=== PATIENT | male | born 2000 | race Two or more races ===

== ENCOUNTER 2024-10-10 09:50 | Inpatient (IN) | payer OTHER ==
[~2024-10-10] VITALS: Ht 182.9 cm; Wt 107.7 kg
[2024-10-10] MEDS: IOHEXOL 300 MG/ML 100ML BOTTLE IJ ONE (10:08)
[2024-10-10 10:11] VITALS: PULSE 84; RESP 15; O2SAT 96
--- NOTE | 2024-10-10 10:12 | ED.PDOC ---
GI ASSESSMENT HPI Comments This is a 23 year old male JUANI presenting to the ED with chief complaint of abdominal pain. Patient reports that he started to experience some RLQ abdominal discomfort 3 days ago, but at 3am this morning, it worsened to pain, so he visited his local [facility]. EMS relays that the patient was confirmed to have appendicitis on their CT, being transferred to [facility] for further in- patient management. Patient states that his pain is intermittent in intensity, but is always constant. Patient denies any N/V/D, fever, chills, dizziness, or headache. Chief Complaint: Abdominal Pain Time Seen by MD: 10:10 Reviewed Notes: Nurses Notes, Grapple Skidder Operator Notes, Medications, Allergies Allergies: Coded Allergies: NO KNOWN ALLERGIES (Unverified , 10/10/24) Information Source: Patient, Emergency Med Personnel Mode of Arrival: EMS Timing: Days Duration: Since onset Prehospital treatment: None Quality: Aching, None Vomitus: None Stool: Normal Severity: Moderate Recent: None Recent Hx of: None Pain Location: RLQ Associated sign and symptoms: Abdominal Pain Past Medical History PAST MEDICAL HISTORY: Denies Surgical History: Denies all surgeries Family History Family History: Reviewed,noncontributory to illness Social History Smoker: Non-Smoker Alcohol: Denies ETOH Use Drugs: Denies Drug Use Lives In: Home Constitutional: denies: chills, diaphoresis, fatigue, fever, malaise, sweats, weakness, others EENTM: denies: blurred vision, double vision, ear bleeding, ear discharge, ear drainage, ear pain, ear ringing, eye pain, eye redness, hearing loss, mouth pain, mouth swelling, nasal discharge, nose bleeding, nose congestion, nose pain, photophobia, tearing, throat pain, throat swelling, voice changes, others Respiratory: denies: cough, hemoptysis, orthopnea, SOB at rest, shortness of breath, SOB with excertion, stridor, wheezing, others Cardiovascular: denies: chest pain, dizzy spells, diaphoresis, Dyspnea on exertion, edema, irregular heart beat, left arm pain, lightheadedness, palpitations, PND, syncope, others Gastrointestinal: reports: abdominal pain; denies: abdomen distended, blood streaked bowels, constipated, diarrhea, dysphagia, difficulty swallowing, hemate mesis, melena, nausea, poor appetite, poor fluid intake, rectal bleeding, rectal pain, vomiting, others Genitourinary: denies: burning, dysuria, flank pain, frequency, hematuria, incontinence, penile discharge, penile sore, pain, testicle pain, testicle swelling, urgency, others Neurological: denies: dizziness, fainting, headache, left sided numbness, left sided weakness, numbness, paresthesia, pre-existing deficit, right sided numbness, right sided weakness, seizure, speech problems, tingling, tremors, weakness, others Musculoskeletal: denies: back pain, gout, joint pain, joint swelling, muscle pain, muscle stiffness, neck pain, others Integumetry: denies: bruises, change in color, change in hair/nails, dryness, laceration, lesions, lumps, rash, wounds, others Allergic/Immunocompromised: denies: Difficulty Healing, Frequent Infections, Hives, Itching, others Hematologic/Lymphatic: denies: anemia, blood clots, easy bleeding, easy bruising, swollen glands, others Endocrine: denies: excessive hunger, excessive sweating, excessive thirst, excessive urination, flushing, intolerance to cold, intolerance to heat, u nexplained weight gain, unexplained weight loss, others Psychiatric: denies: anxiety, bipolar disorder, depression, hopeless, panic disorder, schizophrenia, sleepless, suicidal, others All Other Systems: Reviewed and Negative Physical Exam General Appearance: Moderate Distress, Normal HEENT: Normal ENT Inspection, Pharynx Normal, TMs Normal Neck: Full Range of Motion, Non-Tender, Normal, Normal Inspection Respiratory: Chest Non-Tender, Lungs Clear, No Accessory Muscle Use, No Respiratory Distress, Normal Breath Sounds Cardiovascular: No Edema, No JVD, No Murmur, No Gallop, Normal Peripheral Puls es, Regular Rate/Rhythm Breast Exam: Deferred Gastrointestinal: No Organomegaly, No Pulsatile Mass, Normal Bowel Sounds, RLQ, Soft Genitalia: Deferred Pelvic: Deferred Rectal: Deferred Extremities: No calf tenderness, Normal capillary refill, Normal inspection, Normal range of motion, Non-tender, No pedal edema Musculoskeletal : Apperance: Normal Neurologic: Alert, nurse transplant II-XII nml as Tested, No Motor Deficits, Normal Affect, Normal Mood, No Sensory Deficits Cerebellar Function: Normal Reflexes: Normal Skin: Dry, Normal Color, Warm Peripheral Pulses: 3+ Radial (R), 3+ Radial (L) Lymphatic: No Adenopathy Was a procedure done? Was a procedure done?: No GI differential Dx Differential Diagnosis: Appendicitis, Constipation, Diverticular disease, Esophagitis, Gastritis/PUD, Gastroenteritis X-Ray, Labs, Meds, VS Vital Signs Date Time Temp Pulse Resp B/P (MAP) Pulse Ox O2 Delivery O2 Flow Rate FiO2 10/10/24 10:11 84 15 96 Room Air* 0 21 10/10/24 10:07 98.3 74 15 125/72 (89) 97 98.3 Current Medications Medications (Trade) Dose Ordered Sig/Zehra Route Start Time Stop Time Status Last Admin Sodium Chloride 1,000 ml @ 1,000 mls/hr Q1H ONCE IV 10/10/24 10:00 10/10/24 10:59 10/10/24 10:15 Patient alert. Complaining of abdominal pain. Vitals stable. Answering questions. Abdomen is soft tender in the right lower quadrant. CT scan that was done at outside facility does show appendicitis. Spoke with surgeon. He will be going for surgery for appendectomy. Establish intravenous access. Was given fluids. Was given Ancef. Was given Flagyl. Reviewed his chart. Explained to the patient. Continue monitoring. Time of 1ST Reevaluation: 11:07 Reevaluation 1ST: Unchanged Patient Education/Counseling: Diagnosis, Treatment Family Education/Counseling: No Family Present Additional Information Previous visits reviewed: None The following tests were ordered, and results were reviewed by me: CBC, CMP, UA, Lactic, PTPTT, Blood Culture, CT Abd/Pel W/ IV Con Additional Information was gathered from interviewing the following independent historians: EMS I reviewed and agreed with the following test results read by other providers: CT Abd/Pel with IV Con I discussed treatment and results with medical personnel and: patient Comprehensive systems review obtained and negative except for what is stated in the HPI. SEPSIS Sepsis Screen Physician Orders Complete Blood Count (10/10/24 10:00) Comprehensive Metabolic Panel (10/10/24 10:00) PTPTT (10/10/24 10:00) Urinalysis (10/10/24 10:00) Sodium Chloride 0.9% (10/10/24 10:00) Sodium Chloride 0.9% (10/10/24 10:00) Blood Culture (10/10/24 10:04) Lactic Acid W/ Reflex Order (10/10/24 10:04) Type And Screen (10/10/24 10:13) Obtain Consent For: (10/10/24 10:13) Cefazolin Ancef (10/10/24 10:30) Metronidazole Ivpb Flagyl (10/10/24 10:30) Morphine Sulfate Injection (10/10/24 10:30) Ondansetron Hcl (Zofran) (10/10/24 10:30) Vital Signs Date Time Temp Pulse Resp B/P (MAP) Pulse Ox O2 Delivery O2 Flow Rate FiO2 10/10/24 10:11 84 15 96 Room Air* 0 21 10/10/24 10:07 98.3 74 15 125/72 (89) 97 98.3 Medications Medications Dose Ordered Sig/Zehra Route Start Time Stop Time Status Last Admin Dose Admin Sodium Chloride 1,000 ml @ 1,000 mls/hr Q1H ONCE IV 10/10/24 10:00 10/10/24 10:59 10/10/24 10:15 Departure 1 Departure Time of Disposition: 10:21 Impression: Primary Impression: Acute appendicitis Qualified Codes: K35.80 - Unspecified acute appendicitis Disposition: 09 ADMITTED INPATIENT Admit to: Med Surg Condition: Guarded Critical Care Note Critical Care Time?: Yes (90 min-critical care time only) Stability Stability form required: No Heart Score Heart Score: Heart Score Response (Comments) Value History N/A 0 EKG N/A 0 Age N/A 0 Risk Factors N/A 0 Troponin N/A 0 Total 0 I personally scribed for RACHEL KWONG MD ([email or web address]) on 10/10/24 at 10:12. Electronically submitted by Gato Corona ([email or web address]). RACHEL KWONG MD Oct 10, 2024 10:12
[2024-10-10] MEDS: SODIUM CHLORIDE 0.9% 1,000 ML IV ONE (10:15)
--- NOTE | 2024-10-10 10:30 | DVHINCON2 ---
Date of service: Oct 10, 2024 Allergies: Coded Allergies: NO KNOWN ALLERGIES (Unverified , 10/10/24) Vital Signs Vital Signs Date Time Temp Pulse Resp B/P (MAP) Pulse Ox O2 Delivery O2 Flow Rate FiO2 10/10/24 10:11 84 15 96 Room Air* 0 21 10/10/24 10:07 98.3 125/72 (89) 98.3 Assessment 3 DAY HISTORY OF ABDOMINAL PAIN MOSTLY IN THE RIGHT LOWER QUADRANT, POINT TENDER NESS IN RIGHT LOWER QUADRANT WITH REBOUND GUARDING AND POSITIVE ROVSING SIGN CT SCAN FROM [facility] CONFIRMS CLINICAL IMPRESSSIOJN OF APPENDICITIS, LAPAROSCOPI POSSIBLY OPEN APPENDECTOMY RISKS AND COMPLICATIONS EXPLAINED Plan discussed with: Patient KIRK THOMPSON MD Oct 10, 2024 10:30
[2024-10-10 10:43] LABS: Hematocrit 44.5 % (41.0-53.0); Hemoglobin 15.2 g/dL (13.5-17.5); Mean Corpuscular Hemoglobin 31.4 pg (28.0-32.0); Mean Corpuscular Volume 92.2 fL (80.0-100.0); Nucleated Red Blood Cells % 0.1 %
[2024-10-10 10:56] LABS: Alanine Aminotransferase 32 U/L (7-40); Alkaline Phosphatase 88 U/L (46-116); Anion Gap 7 (5-15); BUN/Creatinine Ratio 16.3 (10.0-20.0); Blood Urea Nitrogen 15 mg/dL (9-23); Calcium 9.8 mg/dL (8.7-10.4); Carbon Dioxide 31 mmol/L (20-31); Chloride 104 mmol/L (98-107); Glucose 85 mg/dL (74-106); Potassium 4.0 mmol/L (3.5-5.1); Sodium 142 mmol/L (136-145); Total Protein 7.0 g/dL (5.7-8.2)
[2024-10-10 10:57] LABS: Bilirubin, Total 0.5 mg/dL (0.2-1.0); INR 1.03 (0.9-1.15); Partial Thromboplastin Time 30.5 SEC (24.5-34.5); Prothrombin Time 10.9 sec (9.3-11.8)
[2024-10-10 10:58] LABS: Albumin 4.8 g/dL (3.2-4.8)
[2024-10-10] MEDS ORDERED: KETAMINE 50mg/ML 1ml syringe ONE (11:04)
[2024-10-10] MEDS ORDERED: fentaNYL CITRATE 100 MCG/2 ML VL ONE (11:05)
[2024-10-10] MEDS ORDERED: GLYCOPYRROLATE 0.2 MG/ML 1ML VIAL ONE (11:05)
[2024-10-10] MEDS ORDERED: PROPOFOL 10 MG/ML 20 ML IV ONE (11:05)
[2024-10-10] MEDS ORDERED: ONDANSETRON HCL 4 MG/2 ML VIAL ONE (11:05)
[2024-10-10] MEDS ORDERED: MIDAZOLAM HCL 2MG/2ML 2ml VIAL (1mg/ml) ONE (11:05)
[2024-10-10] MEDS ORDERED: KETOROLAC TROMETH 30 MG/ML 1ML VIAL ONE (11:05)
[2024-10-10] MEDS ORDERED: LIDOCAINE 2% (LOCAL ANESTH.) PF 5ml SDV ONE (11:05)
[2024-10-10] MEDS ORDERED: ROCURONIUM 10MG/ML 10ML VIAL IV ONE (11:05)
[2024-10-10] MEDS ORDERED: HYDROmorphone HCL 2 MG/ML VL/or syr ONE (12:07)
--- NOTE | 2024-10-10 12:14 | DVHINCON2 ---
Date of service: Oct 10, 2024 Reason for Consultation appendicitis History of Present Illness HPI 23 year old male presenting to the ED with chief complaint of abdominal pain. Patient reports that he started to experience some RLQ abdominal discomfort 3 days ago, but at 3am this morning, pain H&P Exam Vital Signs Vital Signs Date Time Temp Pulse Resp B/P (MAP) Pulse Ox O2 Delivery O2 Flow Rate FiO2 10/10/24 10:11 84 15 96 Room Air* 0 21 10/10/24 10:07 98.3 125/72 (89) 98.3 Labs/Xrays Labs Test 10/10/24 10:24 Range/Units White Blood Count 5.8 4.4-10.8 10^3/uL Red Blood Count 4.83 4.5-5.90 10^6/uL Hemoglobin 15.2 13.5-17.5 g/dL Hematocrit 44.5 41.0-53.0 % Mean Corpuscular Volume 92.2 80.0-100.0 fL Mean Corpuscular Hemoglobin 31.4 28.0-32.0 pg Mean Corpuscular Hemoglobin Concent 34.0 32.0-36.0 g/dL Red Cell Distribution Width 12.3 11.8-14.3 % Platelet Count 227 140-450 10^3/uL Mean Platelet Volume 9.3 6.9-10.8 fL Neutrophils (%) (Auto) 66.8 37.0-80.0 % Lymphocytes (%) (Auto) 24.1 10.0-50.0 % Monocytes (%) (Auto) 7.1 0.0-12.0 % Eosinophils (%) (Auto) 1.6 0.0-7.0 % Basophils (%) (Auto) 0.4 0.0-2.0 % Neutrophils # (Auto) 3.9 1.6-8.6 10 ^3/uL Lymphocytes # (Auto) 1.4 0.4-5.4 10 ^3/uL Monocytes # (Auto) 0.4 0-1.3 10 ^3/uL Eosinophils # (Auto) 0.1 0-0.8 10 ^3/uL Basophils # (Auto) 0 0-0.2 10 ^3/uL Nucleated Red Blood Cells 0.1 % Prothrombin Time 10.9 9.3-11.8 sec Prothrombin Time INR 1.03 0.9-1.15 Activated Partial Thromboplast Time 30.5 24.5-34.5 SEC Sodium Level 142 136-145 mmol/L Potassium Level 4.0 3.5-5.1 mmol/L Chloride Level 104 98-107 mmol/L Carbon Dioxide Level 31 20-31 mmol/L Anion Gap 7 5-15 Blood Urea Nitrogen 15 9-23 mg/dL Creatinine 0.92 0.700-1.30 mg/dL Glomerular Filtration Rate Calc 118 >90 mL/min BUN/Creatinine Ratio 16.3 10.0-20.0 Serum Glucose 85 74-106 mg/dL Lactic Acid Level 1.0 0.4-2.0 mmol/L Calcium Level 9.8 8.7-10.4 mg/dL Total Bilirubin 0.5 0.2-1.0 mg/dL Aspartate Amino Transferase (AST) 25 13-40 U/L Alanine Aminotransferase (ALT) 32 7-40 U/L Alkaline Phosphatase 88 46-116 U/L Total Protein 7.0 5.7-8.2 g/dL Albumin 4.8 3.2-4.8 g/dL TAMIKA NUGENT SPEAKER MOUNTER Oct 10, 2024 12:14
[2024-10-10] MEDS: ceFAZolin 2 GM/D5W50ml 50 ML IV ONE (12:30)
[2024-10-10] MEDS: BUPIVACAINE HCL 0.25% P/F 10 ML VIAL ONE (12:47)
[2024-10-10] MEDS: LIDOCAINE W/ EPINEPHRINE 1% 20ML VIAL ONE (12:48)
[2024-10-10] MEDS ORDERED: MORPHINE SULFATE INJ 2 MG/ml SYRG IV PRN (13:00)
[2024-10-10] MEDS ORDERED: ONDANSETRON HCL 4 MG/2 ML VIAL IV PRN (13:00)
[2024-10-10] MEDS ORDERED: ACETAMINOPHEN 325 MG TAB PO PRN (13:00)
[2024-10-10] MEDS: PANTOPRAZOLE 40 MG/10 ML VIAL INJ IV SCH (13:15)
--- NOTE | 2024-10-10 13:20 | DVHHP2 ---
History of Present Illness Reason for Visit: Abdominal pain History of Present Illness Elmer Christianson is a 23-year-old male with no past medical history who presents to the ED with abdominal pain that started 3 days ago. Was reported that his pain will had worsen 3:00 a.m. this morning had a CT on his local [facility] and then was transferred here for further management. Patient was seen ambulating. General surgery with him. Appears comfortable and ambulating well. Past Surgical History: None Lives: Other Domestic Violence: Neg Review of Systems Gastrointestinal: Abdominal Pain Allergies: Coded Allergies: NO KNOWN ALLERGIES (Unverified , 10/10/24) Exam Vital Signs Vital Signs Date Time Temp Pulse Resp B/P (MAP) Pulse Ox O2 Delivery O2 Flow Rate FiO2 10/10/24 10:11 84 15 96 Room Air* 0 21 10/10/24 10:07 98.3 125/72 (89) 98.3 General Appearance: Alert, Oriented X3, Cooperative, No acute distress HEENT: Atraumatic, PERRLA, EOMI, Mucous membr. moist/pink Respiratory: Clear to auscultation, Normal air movement Cardiovascular: Regular rate, Normal S1, Normal S2, No murmurs Abdominal: Soft Extremities: Normal pulses Skin: No significant lesion Neuro: Normal gait, Normal speech, Strength at 5/5 X4 ext, Normal tone, Sen sation intact Psych/Mental Status: Mental status NL, Mood NL Labs/Xrays Labs Test 10/10/24 10:24 Range/Units White Blood Count 5.8 4.4-10.8 10^3/uL Red Blood Count 4.83 4.5-5.90 10^6/uL Hemoglobin 15.2 13.5-17.5 g/dL Hematocrit 44.5 41.0-53.0 % Mean Corpuscular Volume 92.2 80.0-100.0 fL Mean Corpuscular Hemoglobin 31.4 28.0-32.0 pg Mean Corpuscular Hemoglobin Concent 34.0 32.0-36.0 g/dL Red Cell Distribution Width 12.3 11.8-14.3 % Platelet Count 227 140-450 10^3/uL Mean Platelet Volume 9.3 6.9-10.8 fL Neutrophils (%) (Auto) 66.8 37.0-80.0 % Lymphocytes (%) (Auto) 24.1 10.0-50.0 % Monocytes (%) (Auto) 7.1 0.0-12.0 % Eosinophils (%) (Auto) 1.6 0.0-7.0 % Basophils (%) (Auto) 0.4 0.0-2.0 % Neutrophils # (Auto) 3.9 1.6-8.6 10 ^3/uL Lymphocytes # (Auto) 1.4 0.4-5.4 10 ^3/uL Monocytes # (Auto) 0.4 0-1.3 10 ^3/uL Eosinophils # (Auto) 0.1 0-0.8 10 ^3/uL Basophils # (Auto) 0 0-0.2 10 ^3/uL Nucleated Red Blood Cells 0.1 % Prothrombin Time 10.9 9.3-11.8 sec Prothrombin Time INR 1.03 0.9-1.15 Activated Partial Thromboplast Time 30.5 24.5-34.5 SEC Sodium Level 142 136-145 mmol/L Potassium Level 4.0 3.5-5.1 mmol/L Chloride Level 104 98-107 mmol/L Carbon Dioxide Level 31 20-31 mmol/L Anion Gap 7 5-15 Blood Urea Nitrogen 15 9-23 mg/dL Creatinine 0.92 0.700-1.30 mg/dL Glomerular Filtration Rate Calc 118 >90 mL/min BUN/Creatinine Ratio 16.3 10.0-20.0 Serum Glucose 85 74-106 mg/dL Lactic Acid Level 1.0 0.4-2.0 mmol/L Calcium Level 9.8 8.7-10.4 mg/dL Total Bilirubin 0.5 0.2-1.0 mg/dL Aspartate Amino Transferase (AST) 25 13-40 U/L Alanine Aminotransferase (ALT) 32 7-40 U/L Alkaline Phosphatase 88 46-116 U/L Total Protein 7.0 5.7-8.2 g/dL Albumin 4.8 3.2-4.8 g/dL SEPSIS Sepsis Screen Date sepsis recognized/suspect: Oct 10, 2024 Time Sepsis recognized/suspect: 946 Recent Procedure: No On Antibiotic Therapy: No Respiratory Rate >20: No Heart Rate >90: No Temp<36 C (96.8 F) or >38.3 C: No SBP <90 or MAP <65 mmHG: No New Acute Mental Status Change: No Is the patient on CPAP, BIPAP,: No Physician Orders Urinalysis (10/10/24 10:00) Sodium Chloride 0.9% (10/10/24 10:00) Blood Culture (10/10/24 10:04) Obtain Consent For: (10/10/24 10:13) Anaerobic Culture (10/10/24 12:43) Gram Stain (10/10/24 12:43) Routine Bacterial Culture (10/10/24 12:43) Vital Signs Date Time Temp Pulse Resp B/P (MAP) Pulse Ox O2 Delivery O2 Flow Rate FiO2 10/10/24 10:11 84 15 96 Room Air* 0 21 10/10/24 10:07 98.3 74 15 125/72 (89) 97 98.3 Laboratory Tests Test 10/10/24 10:24 Lactic Acid Level 1.0 mmol/L (0.4-2.0) White Blood Count 5.8 10^3/uL (4.4-10.8) Medications Medications Dose Ordered Sig/Zehra Route Start Time Stop Time Status Last Admin Dose Admin Bupivacaine HCl 10 ml STK-MED ONCE .ROUTE 10/10/24 12:06 10/10/24 12:04 DC 10/10/24 12:47 10 ML Cefazolin Sodium/ Dextrose 50 ml @ ud STK-MED ONCE IV 10/10/24 10:37 10/10/24 10:35 DC 10/10/24 12:30 Lidocaine/ Epinephrine 20 ml STK-MED ONCE .ROUTE 10/10/24 12:06 10/10/24 12:04 DC 10/10/24 12:48 20 ML Sodium Chloride 1,000 ml @ 1,000 mls/hr Q1H ONCE IV 10/10/24 10:00 10/10/24 10:59 DC 10/10/24 10:15 1,000 MLS/HR Assessment/Plan Assessment/Plan Assessment Intractable abdominal pain likely due to appendicitis Plan Admit to med surge Antiemetics Pain management UA IV antibiotics-cefazolin + Flagyl NS 2 L given ED Lactic noted Blood cultures CT abdomen and pelvis noted PT/PTT Diet per General surgery No home medications noted DVT prophylaxis-SCDs PUD prophylaxis-PPIs Discussed plan of care with patient and nurse [place] [id number] Preventive counseling healthy eating habits, physical activity, and regular checkups Plan discussed with: Patient Date of Service: Oct 10, 2024 Billing Provider: NIDIA MAE Common Visit Codes: [id number] INP/OBS CARE (HIGH) Secondary Visit Codes: [id number] COUNSELING IND NIDIA MAE Oct 10, 2024 13:20
[2024-10-10] MEDS: FAMOTIDINE (10MG/ML) 2ML VL IV ONE (13:25)
[2024-10-10 13:29] VITALS: PULSE 107; RESP 14; O2SAT 91
[2024-10-10] MEDS ORDERED: HYDROmorphone HCL 2 MG/ML VL/or syr IV PRN (13:45)
--- NOTE | 2024-10-10 13:49 | DVHOP ---
DATE OF SURGERY: 10/10/2024 PREOPERATIVE DIAGNOSIS: Acute appendicitis. POSTOPERATIVE DIAGNOSIS: Acute appendicitis. SURGEON: Gino Corea MD TELEVISION STATION MANAGER: Sahil García. ANESTHESIA: General endotracheal, Dr. Mayberry. PROCEDURE: Laparoscopy, laparoscopic appendectomy. DESCRIPTION OF PROCEDURE: Under general endotracheal anesthesia with the patient's skin prepped and draped, a supraumbilical incision was made and a Veress needle was inserted by the hanging drop technique in order to establish pneumoperitoneum to 15 mmHg by insufflation with carbon dioxide. With the abdomen fully distended, the needle was removed and replaced with a 5-mm trocar port through which a 0-degree viewing laparoscope was inserted and under direct vision 5 and 10 mm ports were inserted through the infraumbilical incision and the supraumbilical midline incision, respectively. Instrumentation was then introduced. Laparoscopy was performed revealing no obvious unexpected pathology. The appendix was acutely inflamed and infected. It was placed on tension with a Fults grasper and an Endo KATHY stapler equipped with vascular april was placed across the base of the appendix, having been traced to its confluence with the cecum. The appendix and mesoappendix were divided with one application of the Endo KATHY stapler. The severed appendix and mesoappendix were removed from the peritoneal cavity. The right lower quadrant was irrigated. Irrigant was aspirated. Hemostasis was meticulously accomplished, found to be complete at the termination of the procedure, and there was no evidence of bleeding from either the port sites or from the appendicectomy site. Instrumentation was withdrawn. Pneumoperitoneum was evacuated. Fascial defect closed using 0 Vicryl and 2-0 Monocryl sutures, Dermabond glue and Steri-Strips were used for approximation of the skin edges. The patient remained stable throughout the procedure and left the operating room following an accurate needle and sponge count. His , Ashlee, was thoroughly informed at [phone]. MD ESTEBAN Tucker/ANTHONY/CHARLES TID: [id number] RECEIPT: [id number]
[2024-10-10 15:01] VITALS: PULSE 100; RESP 18; O2SAT 92
[2024-10-10] MEDS: SODIUM CHLORIDE 0.9% 1,000 ML IV SCH (15:23)
[2024-10-10 15:30] VITALS: BP 117/56; PULSE 96; RESP 16; TEMP 98.1; O2SAT 93
[2024-10-10] MEDS: ceFAZolin 1GM/50ML 50 ML IV SCH (15:36)
[2024-10-10 17:00] VITALS: BP 116/65; PULSE 90; RESP 18; TEMP 97.5; O2SAT 94
[2024-10-10 20:00] VITALS: PULSE 98; RESP 17; O2SAT 92
[2024-10-10 21:10] LABS: Urine Protein, UAD Negative (Negative)
[2024-10-11] MEDS: HYDROcodone-ACET 5/325MG TAB PO PRN (01:30)
[2024-10-11 07:23] LABS: Hematocrit 40.2 % (41.0-53.0); Hemoglobin 14.1 g/dL (13.5-17.5); Mean Corpuscular Hemoglobin 32.3 pg (28.0-32.0); Mean Corpuscular Volume 92.1 fL (80.0-100.0); Nucleated Red Blood Cells % 0.0 %
[2024-10-11 07:39] LABS: Alanine Aminotransferase 22 U/L (7-40); Albumin 4.2 g/dL (3.2-4.8); Alkaline Phosphatase 76 U/L (46-116); Anion Gap 8 (5-15); BUN/Creatinine Ratio 9.8 (10.0-20.0); Bilirubin, Total 0.4 mg/dL (0.2-1.0); Blood Urea Nitrogen 9 mg/dL (9-23); Calcium 9.7 mg/dL (8.7-10.4); Carbon Dioxide 28 mmol/L (20-31); Chloride 105 mmol/L (98-107); Potassium 4.0 mmol/L (3.5-5.1); Sodium 141 mmol/L (136-145); Total Protein 6.2 g/dL (5.7-8.2)
[2024-10-11 07:43] LABS: Glucose 114 mg/dL (74-106)
[2024-10-11 08:00] VITALS: PULSE 98; RESP 17; O2SAT 92
[2024-10-11 09:00] VITALS: BP 110/64; PULSE 84; RESP 17; TEMP 98.2; O2SAT 95
--- NOTE | 2024-10-11 10:11 | DVHPN2 ---
Progress Note Date Seen: Oct 11, 2024 Medical Necessity Reason Pt with a Central, PICC or Fol: No Objective vital signs Vital Sign Date Time Temp Pulse Resp B/P (MAP) Pulse Ox O2 Delivery O2 Flow Rate FiO2 10/10/24 20:00 98 17 92 Room Air* 0 21 10/10/24 17:00 97.5 116/65 (82) 97.5 Total Intake and Output 10/10/24 10/10/24 10/11/24 15:00 23:00 07:00 Intake Total 150 ml 440 ml 680 ml Balance 150 ml 440 ml 680 ml medications Current Medications Medications Dose Ordered Sig/Zehra Route Start Time Stop Time Status Last Admin Dose Admin Sodium Chloride 1,000 ml @ 120 mls/hr Q8H20M IV 10/10/24 13:00 10/11/24 03:06 120 MLS/HR Acetaminophen/ Hydrocodone Bitart 1 tab Q4HP PRN PO 10/10/24 13:00 10/11/24 01:30 1 TAB Ondansetron HCl 4 mg Q4HP PRN IV 10/10/24 13:00 Acetaminophen 650 mg Q6HP PRN PO 10/10/24 13:00 Morphine Sulfate 2 mg Q4HPRN PRN IV 10/10/24 13:00 Cefazolin Sodium 50 ml @ 100 mls/hr Q8HR IV 10/10/24 14:00 10/11/24 06:47 100 MLS/HR Metronidazole 100 ml @ 100 mls/hr Q8HR IV 10/10/24 14:00 10/11/24 05:39 100 MLS/HR Pantoprazole Sodium 40 mg DAILY IV 10/10/24 13:15 10/11/24 09:34 40 MG laboratory and microbiology Laboratory Tests 10/11/24 06:29 Test 10/11/24 06:29 Range/Units Serum Glucose 114 H 74-106 mg/dL Problem List/Assessment/Plan Problem List/Assessment/Plan 10/11/24 afebrile, normotensive,wounds clean and well approximated, abdomen soft and non distended, nausea resolved, usual leukocytosis. increase po, ambulation, dc tomorow Plan discussed with: Patient KIRK THOMPSON MD Oct 11, 2024 10:11
[2024-10-11] MEDS: SODIUM CHLORIDE 0.9% 1,000 ML IV SCH (11:30)
--- NOTE | 2024-10-11 12:43 | DVHPN2 ---
Subjective Patient reports his abdominal pain is a 03/29. Reviewed: Care Plan, H&P, Medications Changes from previous H/P or p: No Changes General: Per HPI Gastrointestinal: Abdominal Pain Objective Vitals Vital Signs Date Time Temp Pulse Resp B/P (MAP) Pulse Ox O2 Delivery O2 Flow Rate FiO2 10/11/24 09:00 98.2 84 17 110/64 (79) 95 98.2 10/10/24 20:00 Room Air* 0 21 Intake/Output Intake and Output 10/11/24 07:00 Intake Total 1270 ml Balance 1270 ml Intake Oral 720 ml IV Total 550 ml # Voids 3 # Bowel Movements 1 General Appearance: Alert, Oriented X3, Cooperative, mild distress, Other (Obese) HEENT: Atraumatic, PERRLA Lungs: Clear to auscultation, Normal air movement Cardiovascular: Normal S1, Normal S2 Abdomen: Normal bowel sounds, Other (Abdominal incision dry and intact) Musculoskeletal: Normal sensory function, Normal motor function Neuro: Cranial nerves 3-12 NL Skin: Dry, Intact Psych/Mental Status: Mental status NL, Mood NL Medications Current Medications Medications Dose Ordered Sig/Zehra Route Start Time Stop Time Status Last Admin Dose Admin Acetaminophen/ Hydrocodone Bitart 1 tab Q4HP PRN PO 10/10/24 13:00 10/11/24 01:30 1 TAB Ondansetron HCl 4 mg Q4HP PRN IV 10/10/24 13:00 Acetaminophen 650 mg Q6HP PRN PO 10/10/24 13:00 Morphine Sulfate 2 mg Q4HPRN PRN IV 10/10/24 13:00 Cefazolin Sodium 50 ml @ 100 mls/hr Q8HR IV 10/10/24 14:00 10/11/24 06:47 100 MLS/HR Metronidazole 100 ml @ 100 mls/hr Q8HR IV 10/10/24 14:00 10/11/24 05:39 100 MLS/HR Pantoprazole Sodium 40 mg DAILY IV 10/10/24 13:15 10/11/24 09:34 40 MG Sodium Chloride 1,000 ml @ 75 mls/hr [id number] IV 10/11/24 11:30 Laboratory Results Laboratory Tests 10/11/24 06:29 Chemistry Test 10/11/24 06:29 Albumin 4.2 g/dL (3.2-4.8) Calcium Level 9.7 mg/dL (8.7-10.4) Total Protein 6.2 g/dL (5.7-8.2) LFT Test 10/11/24 06:29 Alanine Aminotransferase (ALT) 22 U/L (7-40) Alkaline Phosphatase 76 U/L (46-116) Aspartate Amino Transferase (AST) 19 U/L (13-40) Total Bilirubin 0.4 mg/dL (0.2-1.0) Urinalysis Test 10/10/24 20:40 Urine Color Yellow (Yellow) Urine Clarity Clear (Clear) Urine pH 6.0 (5.0-9.0) Urine Specific [place] 1.044 (1.001-1.035) Urine Protein Negative (Negative) Urine Ketones Trace (Negative) Urine Blood Negative /uL (Negative) Urine Nitrite Negative (Negative) Urine Bilirubin Negative (Negative) Urine Urobilinogen Normal mg/dL (Negative) Urine Leukocyte Esterase Negative /uL (Negative) Urine RBC 1 /hpf (0 - 3) Urine Microscopic WBC 1 /HPF (0-3) Urine Squamous Epithelial Cells None seen /hpf (<5) Urine Bacteria None seen /hpf (None Seen) Urine Mucus Few (None Seen) Urine Glucose Normal mg/dL (Normal) Microbiology Microbiology Date/Time Source Procedure Growth Status 10/10/24 12:43 Peritoneal Fluid Gram Stain - Final Resulted 10/10/24 12:43 Peritoneal Fluid Anaerobic Culture - Preliminary Resulted 10/10/24 12:43 Peritoneal Fluid Aerobic Culture - Preliminary Resulted 10/10/24 10:24 Blood Blood Culture - Preliminary NO GROWTH AFTER 24 HOURS OF INCUBATION. Resulted Labs and/or images reviewed: Labs reviewed by me, Image(s) reviewed by me Assessment/Plan Assessment/Plan Impression: -sepsis -acute appendicitis -obesity -depression Plan: -status post laparoscopic appendectomy. Uneventful recovery. -restart antidepressants -advance diet as tolerated -decrease IV fluids -transitioned to oral pain management -continue antibiotic therapy with Ancef and Flagyl -repeat labs in a.m., discharge once cleared by surgery Total time spent with patient discussing and formulating plan of care: 35 minutes. This medical document was created using an electronic medical record system with [employer] dictation system. Although this document has been carefully reviewed, there may still be some phonetic and typographical errors. These areas are purely typographical due to imperfections of the software programs, and do not reflect any compromise in the patient's medical care. Plan discussed with: Patient, Other (RN) My Orders Orders - EDITA ULLOA NP Procedure Category Date Status Time Sodium Chloride 0.9% PHA 10/11/24 In Process 11:30 Sertraline Hcl PHA 10/12/24 Verified (Zoloft) 10:00 Basic Metabolic Panel LAB 10/12/24 Verified 04:00 Complete Blood Count LAB 10/12/24 Verified 04:00 Date of Service: Oct 11, 2024 Billing Provider: EDITA ULLOA NP Common Visit Codes: [id number] INP/OBS CARE(HIGH) EDITA ULLOA NP Oct 11, 2024 12:43
[2024-10-11 13:00] VITALS: BP 118/65; PULSE 83; RESP 18; TEMP 98.2; O2SAT 95
[2024-10-11 17:00] VITALS: BP 110/52; PULSE 107; RESP 18; TEMP 98.1; O2SAT 94
[2024-10-11 20:00] VITALS: PULSE 91; RESP 16
[2024-10-11 21:00] VITALS: BP 135/70; PULSE 82; RESP 16; TEMP 97.9; O2SAT 94
[2024-10-12 01:00] VITALS: BP 115/79; PULSE 99; RESP 16; TEMP 98.2; O2SAT 92
[2024-10-12 05:00] VITALS: BP 131/71; PULSE 96; RESP 16; TEMP 98.4; O2SAT 94
[2024-10-12 07:03] LABS: Anion Gap 7 (5-15); Carbon Dioxide 30 mmol/L (20-31); Chloride 106 mmol/L (98-107); Potassium 3.8 mmol/L (3.5-5.1); Sodium 143 mmol/L (136-145)
[2024-10-12 07:04] LABS: Calcium 9.2 mg/dL (8.7-10.4)
[2024-10-12 07:07] LABS: Hematocrit 38.2 % (41.0-53.0); Hemoglobin 13.1 g/dL (13.5-17.5); Mean Corpuscular Hemoglobin 31.8 pg (28.0-32.0); Mean Corpuscular Volume 92.2 fL (80.0-100.0); Nucleated Red Blood Cells % 0.0 %
[2024-10-12 07:09] LABS: BUN/Creatinine Ratio 15.2 (10.0-20.0); Blood Urea Nitrogen 16 mg/dL (9-23); Glucose 89 mg/dL (74-106)
[2024-10-12 08:00] VITALS: PULSE 91; RESP 19; O2SAT 97
--- NOTE | 2024-10-12 08:14 | DVHPN2 ---
Subjective Date Seen: Oct 12, 2024 Post op day Post op day: 2 Patient reports: No new complaints Nursing reports: No new complaints General: Normal HNT: Normal Cardiovascular: Normal Respiratory: Normal Gastrointestinal: Normal Genitourinary: Normal Musculoskeletal: Normal Neurological: Normal Objective Vitals Vital Sign Date Time Temp Pulse Resp B/P (MAP) Pulse Ox O2 Delivery O2 Flow Rate FiO2 10/12/24 05:00 98.4 96 16 131/71 (91) 94 98.4 10/11/24 20:00 Room Air* 0 21 Total Intake and Output 10/11/24 10/11/24 10/12/24 15:00 23:00 07:00 Intake Total 150 ml 1375 ml 970 ml Balance 150 ml 1375 ml 970 ml Medications Current Medications Medications Dose Ordered Sig/Zehra Route Start Time Stop Time Status Last Admin Dose Admin Acetaminophen/ Hydrocodone Bitart 1 tab Q4HP PRN PO 10/10/24 13:00 10/11/24 23:11 1 TAB Ondansetron HCl 4 mg Q4HP PRN IV 10/10/24 13:00 Acetaminophen 650 mg Q6HP PRN PO 10/10/24 13:00 Morphine Sulfate 2 mg Q4HPRN PRN IV 10/10/24 13:00 Cefazolin Sodium 50 ml @ 100 mls/hr Q8HR IV 10/10/24 14:00 10/12/24 05:08 100 MLS/HR Metronidazole 100 ml @ 100 mls/hr Q8HR IV 10/10/24 14:00 10/12/24 05:58 100 MLS/HR Pantoprazole Sodium 40 mg DAILY IV 10/10/24 13:15 10/11/24 09:34 40 MG Sodium Chloride 1,000 ml @ 75 mls/hr [id number] IV 10/11/24 11:30 10/11/24 11:30 75 MLS/HR Sertraline HCl 100 mg DAILY PO 10/12/24 10:00 General: Normal, Well developed Head/Eyes: Normal ENT: Normal Neck: Normal Lungs: Normal Cardiovascular: Normal, Regular rate and rhythm Abdominal: Normal, Soft, Normal inspection Musculoskeletal: Normal Extremities: Normal Skin: Normal, Normal inspection Neurological: Normal Labs and Microbiology Laboratory Tests 10/12/24 05:40 Test 10/12/24 05:40 Range/Units Serum Glucose 89 74-106 mg/dL Ass/Plan Labs and/or images reviewed: Labs reviewed by me, Image(s) reviewed by me Problem List 10/11/24 afebrile, normotensive,wounds clean and well approximated, abdomen soft and non distended, nausea resolved, usual leukocytosis. increase po, ambulation, dc tomorow Problems(with codes): (1) Acute appendicitis Assessment/Plan s/p laparoscopic appendectomy POD#2 no new complaints abdomen soft, non distended, appropriately tender tolerating diet, passing flatus, BM denies nausea or vomiting Plan: ok to discharge per surgery point of view follow up in clinic in two weeks send home with antibiotics Prognosis: Good Plan discussed with patient, Dr. Corea Visit Coding Surgery Date of Service if different f: Oct 12, 2024 Billing Provider: KIRK COREA MD Surgery Visit Codes: [id number] INP/OBS CARE(HIGH) TAMIKA NUGENT NP Oct 12, 2024 08:14
[2024-10-12] MEDS: ceFAZolin 1GM/50ML 50 ML IV ONE (08:34)
[2024-10-12] MEDS: MORPHINE SULFATE 4 MG/ML SYR/VIAL IV ONE (08:34)
[2024-10-12] MEDS: SODIUM CHLORIDE 0.9% 1,000 ML IV ONE (08:34)
[2024-10-12] MEDS: ACETAMINOPHEN IV 1000 MG/100ML (10MG/ML) IV ONE (08:35)
[2024-10-12] MEDS: ONDANSETRON HCL 4 MG/2 ML VIAL IV ONE ×2 (08:35)
[2024-10-12 09:00] VITALS: BP 122/80; PULSE 85; RESP 17; TEMP 98.1; O2SAT 95
[2024-10-12] MEDS: SERTRALINE HCL 50 MG TAB PO SCH (12:36)
[2024-10-12 13:00] VITALS: BP 125/65; PULSE 87; RESP 17; TEMP 98.4; O2SAT 95
--- NOTE | 2024-10-12 15:45 | DVHDS2 ---
Discharge Summary Date of Admission Oct 10, 2024 at 13:00 Date of Discharge: Oct 12, 2024 Admitting Diagnosis -sepsis -acute appendicitis -obesity -depression Labs/Diagnostic Data: Laboratory Results Test 10/12/24 05:40 10/11/24 06:29 10/10/24 20:40 10/10/24 10:24 White Blood Count 9.7 10^3/uL (4.4-10.8) Red Blood Count 4.14 10^6/uL (4.5-5.90) Hemoglobin 13.1 g/dL (13.5-17.5) Hematocrit 38.2 % (41.0-53.0) Mean Corpuscular Volume 92.2 fL (80.0-100.0) Mean Corpuscular Hemoglobin 31.8 pg (28.0-32.0) Mean Corpuscular Hemoglobin Concent 34.4 g/dL (32.0-36.0) Red Cell Distribution Width 12.4 % (11.8-14.3) Platelet Count 200 10^3/uL (140-450) Mean Platelet Volume 9.7 fL (6.9-10.8) Neutrophils (%) (Auto) 69.8 % (37.0-80.0) Lymphocytes (%) (Auto) 22.3 % (10.0-50.0) Monocytes (%) (Auto) 7.2 % (0.0-12.0) Eosinophils (%) (Auto) 0.4 % (0.0-7.0) Basophils (%) (Auto) 0.3 % (0.0-2.0) Neutrophils # (Auto) 6.8 10 ^3/uL (1.6-8.6) Lymphocytes # (Auto) 2.2 10 ^3/uL (0.4-5.4) Monocytes # (Auto) 0.7 10 ^3/uL (0-1.3) Eosinophils # (Auto) 0 10 ^3/uL (0-0.8) Basophils # (Auto) 0 10 ^3/uL (0-0.2) Nucleated Red Blood Cells 0.0 % Sodium Level 143 mmol/L (136-145) Potassium Level 3.8 mmol/L (3.5-5.1) Chloride Level 106 mmol/L (98-107) Carbon Dioxide Level 30 mmol/L (20-31) Anion Gap 7 (5-15) Blood Urea Nitrogen 16 mg/dL (9-23) Creatinine 1.05 mg/dL (0.700-1.30) Glomerular Filtration Rate Calc 101 mL/min (>90) BUN/Creatinine Ratio 15.2 (10.0-20.0) Serum Glucose 89 mg/dL (74-106) Calcium Level 9.2 mg/dL (8.7-10.4) Total Bilirubin 0.4 mg/dL (0.2-1.0) Aspartate Amino Transferase (AST) 19 U/L (13-40) Alanine Aminotransferase (ALT) 22 U/L (7-40) Alkaline Phosphatase 76 U/L (46-116) Total Protein 6.2 g/dL (5.7-8.2) Albumin 4.2 g/dL (3.2-4.8) Urine Color Yellow (Yellow) Urine Clarity Clear (Clear) Urine pH 6.0 (5.0-9.0) Urine Specific [place] 1.044 (1.001-1.035) Urine Protein Negative (Negative) Urine Ketones Trace (Negative) Urine Blood Negative /uL (Negative) Urine Nitrite Negative (Negative) Urine Bilirubin Negative (Negative) Urine Urobilinogen Normal mg/dL (Negative) Urine Leukocyte Esterase Negative /uL (Negative) Urine RBC 1 /hpf (0 - 3) Urine Microscopic WBC 1 /HPF (0-3) Urine Squamous Epithelial Cells None seen /hpf (<5) Urine Bacteria None seen /hpf (None Seen) Urine Mucus Few (None Seen) Urine Glucose Normal mg/dL (Normal) Prothrombin Time 10.9 sec (9.3-11.8) Prothrombin Time INR 1.03 (0.9-1.15) Activated Partial Thromboplast Time 30.5 SEC (24.5-34.5) Lactic Acid Level 1.0 mmol/L (0.4-2.0) Other Laboratory Tests 10/12/24 05:40 Brief Hx & Hospital Course: This is a transplant years old male with no known past medical history come to emergency department for severe abdominal pain for three day with nausea and vomiting. CT scan abdomen pelvis showed acute appendicitis. The patient subsequently had a appendectomy done. He tolerated diet. He pass flatus. Surgeon cleared him for discharge. The patient will be follow up with 1-2 weeks for postop follow up. Activity as tolerated. Patient is supposed to have light duty at the [employer] where he works. Diet per home diet. Physical exam: HEENT: Normocephalic atraumatic pupils equal react to light and accommodation. Extraocular muscles intact, conjunctiva pink, oropharynx moist, no thrush, no exudate. Lymphatic: No lymphadenopathy Cardiovascular exam: S1, S2 was heard. No murmurs, rubs, gallops Lung: Clear on auscultation bilaterally, no wheeze, rale, rhonchi. GI: Abdominal soft, nondistended, nontenderness, positive bowel sounds. Extremity: No crepitus, cyanosis, edema. Pedal pulses present bilateral. Full range of motion. Skin: Normal turgor, no rash. Psych: Alert, oriented x3. Neurology: No focal deficits, cranial nerve II to XII grossly intact. This medical document was created using an electronic medical record system with [employer] direct computerized dictation system. Although this document has been carefully reviewed, there may still be some phonetic and typographical errors. These areas are purely typographical due to imperfections of the software programs, and do not reflect any compromise in the patient's medical care. Condition at Discharge: Stable Final Diagnosis/Problems List -sepsis -acute appendicitis -obesity -depression Discharge Disposition: Home Discharge Instruct/Medications Scheduled Metronidazole (Flagyl), 1 TAB PO TID Scheduled PRN Hydrocodone-Acetaminophen (Hydrocodone Bitartrate/AC 5-325 mg), 1 TAB PO Q4HP PRN Discharge Statement: "Patient was advised to return to the ER or call 911 if any headaches, dizziness, shortness of breath, chest pain, abdominal pain, bleeding, fevers, or worsening of medical condition. Patient was counseled about treatment plan, medications, possible side effects, patientverbalized understanding. All questions were answered to the best of my ability. This discharge took greater then 30 minutes in planning, reviewing documentation, counseling the patient, and discussing with other team members." ASSESSMENT ASSESSMENT Assessment Date of Service: Oct 12, 2024 Billing Provider: SAGAR WATSON MD Common Visit Codes: [id number] DISCH DAY >30min SAGAR WATSON MD Oct 12, 2024 15:45
[2024-10-12] MEDS ORDERED: METR-344 PO (15:46)
[2024-10-12] MEDS ORDERED: HYDR-4902 PO (15:46)
[2024-10-12 16:18] VITALS: BP 125/65; PULSE 87; RESP 17; TEMP 98.4; O2SAT 95
== END 2024-10-12 17:20 | disposition home or self-care (01) | DRG 854 ==
LOC: ER 09:50 → EDBD 09:50 → OVERFLOW 13:00 → EAST 14:51
PROVIDERS: ADMIT Nurse Practitioner Acute Care; ATTEND Nurse Practitioner Acute Care
PROC: 0DTJ4ZZ Resection of Appendix, Percutaneous Endoscopic Approach (ICD-10-PCS; principal; 2024-10-10 12:18)
DX: A41.9 Sepsis, unspecified organism (principal); D62 Acute posthemorrhagic anemia; K35.80 Unspecified acute appendicitis; E66.9 Obesity, unspecified; Z68.32 Body mass index [BMI] 32.0-32.9, adult; F32.A Depression, unspecified
CPT/HCPCS: 36415; 80048; 80053; 81001; 83605; 85025; 85610; 85730; 86850; 86900; 86901; 87040; 87070; 87075; 87205; 96365; 99291; G0378; J1100; J1885; J2003; J2250; J2405; J2470; J2704; J3490